=== PATIENT | male | born 2005 | race African-American/Black ===

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

== ENCOUNTER 2024-05-07 09:16 | Emergency (ER) | payer SELFPAY ==
[~2024-05-07] VITALS: Ht 185.4 cm; Wt 94.0 kg
[2024-05-07] MEDS ORDERED: PRED20TA2 PO (10:16)
[2024-05-07] MEDS ORDERED: AZIT500T PO (10:16)
[2024-05-07] MEDS ORDERED: ALBUAER3 IN (10:16)
[2024-05-07 10:19] VITALS: BP 119/82; PULSE 108; RESP 16; TEMP 98.7; O2SAT 97
[2024-05-07] MEDS: ALBUTEROL SULF 2.5 MG/0.5ML(0.5%) NEB SOLN NEB ONE (10:22)
[2024-05-07] MEDS: IPRATROPIUM BROM 0.5 MG/2.5ML INH SOL NEB ONE (10:22)
[2024-05-07 10:25] VITALS: RESP 18; O2SAT 98
[2024-05-07] MEDS: AZITHROMYCIN 500MG/ 250ML 250 ML IV ONE (10:27)
[2024-05-07] MEDS: DexAMETHasone SOD PHOS 10MG/1ML VIAL INJ IV ONE (10:27)
== END 2024-05-07 12:37 | disposition home or self-care (01) ==
LOC: ER 09:16
DX: J45.901 Unspecified asthma with (acute) exacerbation (principal); F12.90 Cannabis use, unspecified, uncomplicated
CPT/HCPCS: 94640; 96365; 96366; 96375; 99284; J0456; J1100